=== PATIENT | female | born 1985 | race Caucasian/White ===

== ENCOUNTER → 2018-04-30 18:37 | Outpatient (CLI) | payer OTHER, MEDICAID, SELFPAY ==
--- NOTE | 2018-04-30 18:46 | DI.RAD.S_ITS ---
PROCEDURE: XR MANDIBLE MIN 4V INDICATIONS: 32 year-old female with mandibular pain after prior surgery. TECHNIQUE: 4 views of the mandible were acquired. COMPARISON: None available. FINDINGS: Bones: Bilateral surgical fixation screws are present near the mandibular angles. No fractures or dislocations. No suspicious bony lesions. Dentition appears intact. Soft tissues: Visualized sinuses appear clear. No suspicious soft tissue densities. IMPRESSION: No radiographic explanation for mandibular pain, status post remote bilateral surgeries. Dictated by: Dionicio Stewart M.D. on 05/01/2018 at 7:43 Approved by: Dionicio Stewart M.D. on 05/01/2018 at 7:45
== END ==
PROVIDERS: PCP Nurse Practitioner Family; Visit Provider Nurse Practitioner Family
DX: R68.84 Jaw pain (principal)
CPT/HCPCS: 70110